=== PATIENT | female | born 1995 | race African-American/Black ===

== ENCOUNTER 2019-07-31 09:20 | Emergency (ER) | payer MEDICAID ==
[~2019-07-31] VITALS: Ht 167.6 cm; Wt 150.0 kg
[2019-07-31 10:30] VITALS: BP 187/116
== END 2019-07-31 13:53 | disposition left against medical advice (07) ==
LOC: ER 10:51
DX: R07.89 Other chest pain (principal); Z53.21 Procedure and treatment not carried out due to patient leaving prior to being seen by health care provider
CPT/HCPCS: 93005